=== PATIENT | female | born 1940 | race Caucasian/White ===

== ENCOUNTER → 2017-12-08 | Day surgery (SDC) | payer MEDICARE ==
[~2017-12-08] VITALS: Ht 159.4 cm; Wt 82.0 kg
[~2017-12-08] MED LIST: CHLORHEXIDINE GLUCONATE 2 % 1 PACK (2 CLOTHS) TOPICAL PRN; LACTATED RINGER'S 1000 ML IV PRN; LATA0.002 EACH EYE; LIDOCAINE HCL 1% PF 30 ML VIAL ONE; LISI-515 PO; MELA5 PO; METOPROLOL TARTRATE 25 MG TAB PO PRN; POVIDONE IODINE 5% (ANTISEPSIS KIT) 4 APPLICATIONS EACH NARE PRN; PROPARACAINE HCL 0.5% OPHT SOLN 15 ML BTL RIGHT EYE ONE; PROPOFOL 200 MG/20 ML AMP ONE; SODIUM CHLORID 0.9% 500 ML IV PRN; TOBRAMYCIN/DEXAMETHASONE OPTH OINT 3.5 GM TUBE ONE; ZOCO10TA PO
[2017-12-08] MEDS: PHENYLEPHRINE HCL 10% OPTH SOLN 5 ML BTL RIGHT EYE SCH ×4 (07:15→07:30)
[2017-12-08] MEDS: TROPICAMIDE 1% OPHT SOLN 15 ML BTL RIGHT EYE SCH ×4 (07:15→07:30)
[2017-12-08] MEDS: FLURBIPROFEN 0.03% OPHT SOLN 2.5 ML BTL RIGHT EYE SCH ×4 (07:15→07:30)
[2017-12-08] MEDS: CYCLOPENTOLATE HCL 1% OPHT SOLN 2 ML BTL RIGHT EYE SCH ×4 (07:15→07:30)
[2017-12-08 07:20] VITALS: PULSE 72
[2017-12-08] MEDS: HYALURONIDASE/LIDOCAINE/BUPIVACAINE 5 ML SYR RIGHT EYE SCH (08:00)
[2017-12-08 08:02] VITALS: PULSE 77
[2017-12-08 09:03] VITALS: TEMP 97.6
[2017-12-08 09:19] VITALS: BP 130/82; PULSE 72; RESP 14; O2SAT 100
--- NOTE | 2017-12-08 10:57 | MP ---
cc: NIC CABRALES M.D. [facility] #: [id number] DATE: 12/08/2017 PREOPERATIVE DIAGNOSIS: Visually significant cataract right eye. POSTOPERATIVE DIAGNOSIS: Visually significant cataract right eye. OPERATION: Phacoemulsification with posterior chamber lens implantation, right eye. SURGEON: Nic Cabrales MD ANESTHESIA: Retrobulbar with MAC. COMPLICATIONS: None. PROCEDURE: After informed consent was obtained, the patient was brought into the operative suite and placed on appropriate monitors by the Anesthesia Service. The patient had received a prior retrobulbar injection of local anesthetic by the Anesthesia Service in the holding area. The patient's operative eye was then prepped and draped in the usual sterile fashion. A wire lid speculum was placed. A paracentesis incision was made in the peripheral cornea with a 1 mm lucas keratome. The anterior chamber was filled with viscoelastic. The anterior chamber was then entered through a stepped, clear corneal incision using a sharp 3 mm lucas keratome. A circular tear capsulorrhexis was then made with a bent needle cystitome. Following hydrodissection of the lens nucleus with balanced saline, phacoemulsification of the nucleus was performed using a modified chopping technique. The remaining cortex was removed with irrigation/aspiration. The prior two procedures were both performed using the handpieces of the [employer] phaco unit. The capsular bag was then filled with viscoelastic. The intraocular lens was then injected into the capsular bag and positioned. The type of intraocular lens and its power can be found elsewhere in this chart. The remaining viscoelastic was then removed from the anterior chamber with the IA handpiece. The anterior chamber was reformed with balanced saline. The wound was then closed securely with stromal hydration. It was found to be watertight to an intraocular pressure of at least 30 mmHg by palpation. A small amount of balanced salt solution was then removed through the paracentesis site and the intraocular pressure at the end of the case was approximately 20 by palpation. All drapes were then removed. TobraDex ointment was then placed in the eye, which was closed beneath a semi-pressure patch dressing. The patient tolerated this procedure well and left the operating room awake and alert. The patient is to follow-up in my office in the morning. MD OBDULIA Blanchard/ERIC /9:56 AM /10:51 AM
== END | disposition home or self-care (01) ==
LOC: PHSDC 06:38
PROVIDERS: ATTEND Optometrist Occupational Vision
DX: H25.11 Age-related nuclear cataract, right eye (principal)
CPT/HCPCS: 00142; 66984; J7040; V2632

== ENCOUNTER → 2018-01-22 | Day surgery (SDC) | payer MEDICARE ==
[~2018-01-22] VITALS: Ht 160 cm; Wt 82.5 kg
[~2018-01-22] MED LIST changes: +HYALURONIDASE/LIDOCAINE/BUPIVACAINE 5 ML SYR LEFT EYE ONE; -METOPROLOL TARTRATE 25 MG TAB PO PRN; +PROPARACAINE HCL 0.5% OPHT SOLN 15 ML BTL LEFT EYE ONE; -PROPARACAINE HCL 0.5% OPHT SOLN 15 ML BTL RIGHT EYE ONE; +SODIUM CHLORID 0.9% 500 ML INJ 500 ML ONE; -SODIUM CHLORID 0.9% 500 ML IV PRN
[2018-01-22 07:20] VITALS: PULSE 65
[2018-01-22] MEDS: PHENYLEPHRINE HCL 10% OPTH SOLN 5 ML BTL LEFT EYE SCH ×4 (07:23→07:38)
[2018-01-22] MEDS: CYCLOPENTOLATE HCL 1% OPHT SOLN 2 ML BTL LEFT EYE SCH ×4 (07:23→07:38)
[2018-01-22] MEDS: TROPICAMIDE 1% OPHT SOLN 15 ML BTL LEFT EYE SCH ×4 (07:23→07:38)
[2018-01-22] MEDS: FLURBIPROFEN 0.03% OPHT SOLN 2.5 ML BTL LEFT EYE SCH ×4 (07:23→07:38)
[2018-01-22 07:50] VITALS: PULSE 64
[2018-01-22 09:30] VITALS: BP 138/74; PULSE 68; RESP 16; TEMP 97.9; O2SAT 100
--- NOTE | 2018-01-22 10:02 | MP ---
cc: Nic Romero MD DATE OF OPERATION: 01/22/2018 [facility] #[id number] PREOPERATIVE DIAGNOSIS: Visually significant cataract left eye. POSTOPERATIVE DIAGNOSIS: Visually significant cataract left eye. OPERATION: Phacoemulsification with posterior chamber lens implantation, left eye. SURGEON: Nic Romero MD ANESTHESIA: Retrobulbar with MAC. COMPLICATIONS: None. PROCEDURE: After informed consent was obtained, the patient was brought into the operative suite and placed on appropriate monitors by the Anesthesia Service. The patient had received a prior retrobulbar injection of local anesthetic by the Anesthesia Service in the holding area. The patient's operative eye was then prepped and draped in the usual sterile fashion. A wire lid speculum was placed. A paracentesis incision was made in the peripheral cornea with a 1 mm lucas keratome. The anterior chamber was filled with viscoelastic. The anterior chamber was then entered through a stepped, clear corneal incision using a sharp 3 mm lucas keratome. A circular tear capsulorrhexis was then made with a bent needle cystitome. Following hydrodissection of the lens nucleus with balanced saline, phaco-emulsification of the nucleus was performed using a modified chopping technique. The remaining cortex was removed with irrigation/aspiration. The prior two procedures were both performed using the handpieces of the [employer] phaco unit. The capsular bag was then filled with viscoelastic. The intraocular lens was then injected into the capsular bag and positioned. The type of intraocular lens and its power can be found elsewhere in this chart. The remaining viscoelastic was then removed from the anterior chamber with the IA handpiece. The anterior chamber was reformed with balanced saline. The wound was then closed securely with stromal hydration. It was found to be watertight to an intraocular pressure of at least 30 mmHg by palpation. A small amount of balanced salt solution was then removed through the paracentesis site and the intraocular pressure at the end of the case was approximately 20 by palpation. All drapes were then removed. TobraDex ointment was then placed in the eye, which was closed beneath a semi-pressure patch dressing. The patient tolerated this procedure well and left the operating room awake and alert. The patient is to follow-up in my office in the morning. MD EVER Blanchard , 09:50 AM , 10:01 AM
== END | disposition home or self-care (01) ==
LOC: PHSDC 06:29
PROVIDERS: ATTEND Optometrist Occupational Vision
DX: H25.12 Age-related nuclear cataract, left eye (principal)
CPT/HCPCS: 00142; 66984; J7040; V2632